=== PATIENT | male | born 1960 | race Caucasian/White ===

== ENCOUNTER 2018-04-12 19:40 | Emergency (ER) | payer OTHER, BC ==
[2018-04-12 19:57] VITALS: BP 148/91
--- NOTE | 2018-04-12 21:12 | EDM.PDOC ---
ED HPI GENERAL MEDICAL PROBLEM - General Chief Complaint: General Stated Complaint: genital trauma Time Seen by Provider: 04/12/18 20:05 Source of Information: Reports: Patient History Limitations: Reports: No Limitations - History of Present Illness INITIAL COMMENTS - FREE TEXT/NARRATIVE: Justin is a 57 yo male who presents to the ER with concerns of trauma to the distal tip of his penis. He states he was at work at the [employer] changing out round dies on a machine. He states the dies weigh roughly 3-5 lbs. His body was up against the machine and he ended up accidentaly dropping the and it pinched the tip of his penis. He states he has a little bit of blood coming out of the penis presently. He denies any trauma or discomfort to the shaft of the penis. States it is only the tip that is bothering him. It doesn't hurt presently at all but does ooze a very small amount of blood. States he hasn't had the urge to use the bathroom or void yet. Location: Reports: Pelvis Associated Symptoms: Reports: No Other Symptoms Penis Pain Score (Numeric/FACES): 2 - Related Data Allergies Allergy/AdvReac Type Severity Reaction Status Date / Time No Known Allergies Allergy Verified 01/06/15 23:12 Home Meds: Home Meds . [No Known Home Meds] 04/12/18 [History] Past Medical History Other Cardiovascular History: MURMUR - Past Surgical History GI Surgical History: Reports: Appendectomy Social & Family History - Family History Family Medical History: Noncontributory - Tobacco Use Smoking Status *Q: Current Every Day Smoker Years of Tobacco use: 35 Packs/Tins Daily: 1 - Alcohol Use Days Per Week of Alcohol Use: 5 Number of Drinks Per Day: 2 Total Drinks Per Week: 10 - Recreational Drug Use Recreational Drug Use: No ED ROS GENERAL - Review of Systems Review Of Systems: ROS reveals no pertinent complaints other than HPI. ED EXAM, GENERAL - Physical Exam Exam: See Below Exam Limited By: No Limitations General Appearance: Alert, No Apparent Distress (reading a book upon my entrance , doesn't appear to be in any distress, smiling having normal conversation. ) (Male) Exam: Penile Lesions (genital warts to shaft of penis), Other (very small superficial abrasion to underside of tip of penis. scant amount of blood coming from urethral opening. no trauma or swelling to shaft of penis. Glans of penis appears otherwise to be intact without any significant swelling or deformity. ). No: Scrotal Swelling, Scrotum Tenderness (L), Scrotum Tenderness (R), Suprapubic Fullness, Testicular Mass, Testicular Tenderness (L), Testicular Tenderness (R) Course - Vital Signs Last Recorded V/S: Last Vital Signs Temp 99 F 04/12/18 19:51 Pulse 82 04/12/18 19:51 Resp 18 04/12/18 19:51 BP 148/91 H 04/12/18 19:51 Pulse Ox 96 04/12/18 19:51 Departure - Departure Time of Disposition: 21:14 Disposition: Home, Self-Care 01 Condition: Good Clinical Impression: Penile trauma Qualifiers: Encounter type: initial encounter Qualified Code(s): S39.94XA - Unspecified injury of external genitals, initial encounter - Discharge Information Referrals: Provider,Unknown [Primary Care Provider] - Additional Instructions: Push fluids tonight May ice affected area as discussed Encourage urinating, if at any point unable to void, need to return to ER immediately May take Tylenol or ibuprofen for discomfort. Recheck in clinic tomorrow morning at 7:30, will get urine sample in am. - Problem List & Annotations (1) Penile trauma SNOMED Code(s): 664728083 Code(s): S39.94XA - UNSPECIFIED INJURY OF EXTERNAL GENITALS, INITIAL ENCOUNTER Status: Acute Current Visit: Yes Qualifiers: Encounter type: initial encounter Qualified Code(s): S39.94XA - Unspecified injury of external genitals, initial encounter - Assessment/Plan Plan: Mauro was able to void in the ER. He did have some discomfort initially with voiding. Will discharge home at this time with instructions on voiding. If at any time he is unable to void he needs to return to ER. Encourage pushing fluids and may ice. Advise against any intercourse or masturbation. Follow up in clinic in morning
== END 2018-04-12 21:30 | disposition home or self-care (01) ==
LOC: CC.ED 19:40
DX: S30.812A Abrasion of penis, initial encounter (principal); F17.210 Nicotine dependence, cigarettes, uncomplicated; W23.1XXA Caught, crushed, jammed, or pinched between stationary objects, initial encounter; Y99.0 Civilian activity done for income or pay
CPT/HCPCS: 99282

== ENCOUNTER 2020-03-07 19:41 | Emergency (ER) | payer OTHER, BC ==
[2020-03-07 19:44] VITALS: BP 155/76; PULSE 67
[2020-03-07] MEDS ORDERED: Diphtheria,Pertussis(Acell),Tetanus Vaccine 0.5 ML Syringe IM ONE (19:44)
[2020-03-07] MEDS ORDERED: Lidocaine 1% 20 ML MDV INJECT ONE (19:45)
[2020-03-07] MEDS ORDERED: Bacitracin/Neomycin/Polymyxin B Oint 0.9 GM U/D Packet TOP ONE (20:00)
--- NOTE | 2020-03-07 20:00 | EDM.PDOC ---
ED HPI GENERAL MEDICAL PROBLEM - General Chief Complaint: Laceration Stated Complaint: laceration Time Seen by Provider: 03/07/20 19:44 Source of Information: Reports: Patient History Limitations: Reports: No Limitations - History of Present Illness INITIAL COMMENTS - FREE TEXT/NARRATIVE: Was working at the [employer] when a pipe struck him on the left cheek under his eye. He has a 2.75cm laceration to the area. Small amount of bleeding noted to the area. He denies any other injury or any LOC. Tetanus is unknown. Onset: Today Location: Reports: Face - Related Data Allergies Allergy/AdvReac Type Severity Reaction Status Date / Time No Known Allergies Allergy Verified 03/07/20 20:11 Home Meds: Home Meds . [No Known Home Meds] 04/12/18 [History] Past Medical History Other Cardiovascular History: MURMUR - Past Surgical History GI Surgical History: Reports: Appendectomy Social & Family History - Family History Family Medical History: Noncontributory - Tobacco Use Smoking Status *Q: Current Every Day Smoker Years of Tobacco use: 35 Packs/Tins Daily: 1 - Caffeine Use Caffeine Use: Reports: None - Recreational Drug Use Recreational Drug Use: No ED ROS GENERAL - Review of Systems Review Of Systems: See Below Constitutional: Reports: No Symptoms Skin: Reports: Wound (left cheek) ED EXAM, SKIN/RASH Exam: See Below General Appearance: Alert, WD/WN, No Apparent Distress Eye Exam: Bilateral Eye: PERRL Nose: Normal Inspection Head: Atraumatic, Facial Tenderness (to area around laceration). No: Facial Swelling Location, Skin: Face (on left cheek below left eye) ED SKIN PROCEDURES - Laceration/Wound Repair Left Cheek Appearance: Superficial Distal NVT: Neuro & Vascular Intact Anesthetic Type: Local Local Anesthesia - Lidocaine (Xylocaine): 1% Plain Local Anesthetic Volume: 1cc Closed with: Sutures Lac/Wound length In cm: 2.7 Suture Size: 5-0 # of Sutures: 3 Suture Type: Nylon, Interrupted Sterile Dressing Applied: Nurse Tetanus Status Addressed: Yes Complications: No Course - Vital Signs Last Recorded V/S: Last Vital Signs Temp 97.7 F 03/07/20 19:42 Pulse 67 03/07/20 19:42 Resp 20 03/07/20 19:42 BP 155/76 H 03/07/20 19:42 Pulse Ox 98 03/07/20 19:42 - Orders/Labs/Meds Meds: Medications Discontinued Medications Generic Name Dose Route Start Last Admin Trade Name Asmita PRN Reason Stop Dose Admin Diphtheria/Tetanus/Acell Pertussis 0.5 ml 03/07/20 19:44 03/07/20 19:51 Adacel IM 03/07/20 19:45 0.5 ml .ONCE ONE Administration Lidocaine HCl 20 ml 03/07/20 19:45 03/07/20 19:50 Xylocaine 1% INJECT 03/07/20 19:46 20 ml ONETIME ONE Administration Neomycin/Polymyxin/Bacitracin 1 each 03/07/20 20:00 03/07/20 20:02 Triple Antibiotic Oint TOP 03/07/20 20:01 1 each ONETIME ONE Administration Departure - Departure Time of Disposition: 19:58 Disposition: Home, Self-Care 01 Condition: Good Clinical Impression: Laceration - Discharge Information *PRESCRIPTION DRUG MONITORING PROGRAM REVIEWED*: Not Applicable *COPY OF PRESCRIPTION DRUG MONITORING REPORT IN PATIENT JEREMY: Not Applicable Instructions: Laceration Care, Adult, [id number] Forms: ED Department Discharge Additional Instructions: suture removal in about 10 days.- make appt in clinic [phone] when able keep clean and dry keep covered when at work to protect it. recheck if any concern for infection Sepsis Event Note (ED) - Evaluation Sepsis Screening Result: No Definite Risk - Focused Exam Vital Signs: Vital Signs Temp Pulse Resp BP Pulse Ox 03/07/20 19:42 97.7 F 67 20 155/76 H 98 - Problem List & Annotations (1) Laceration SNOMED Code(s): 581657207 Code(s): PKK1550 - Status: Acute Priority: High - Problem List Review Problem List Initiated/Reviewed/Updated: Yes
== END 2020-03-07 20:08 | disposition home or self-care (01) ==
LOC: CC.ED 19:41
DX: S01.412A Laceration without foreign body of left cheek and temporomandibular area, initial encounter (principal); F17.210 Nicotine dependence, cigarettes, uncomplicated; Z23 Encounter for immunization; W22.8XXA Striking against or struck by other objects, initial encounter
CPT/HCPCS: 12013; 90471; 90715; 99282; J2001

== ENCOUNTER 2022-06-26 04:47 | Emergency (ER) | payer BC, OTHER ==
[2022-06-26] MEDS: Albuterol/Ipratropium 3.0-0.5 MG/3 ML Neb Soln NEB ONE (04:53)
[2022-06-26 06:22] VITALS: BP 114/64; PULSE 88
== END 2022-06-26 05:45 | disposition home or self-care (01) ==
LOC: CC.ED 04:47
DX: R06.02 Shortness of breath (principal); F17.210 Nicotine dependence, cigarettes, uncomplicated
CPT/HCPCS: 94640; 99283; J7620-GY